=== PATIENT | male | born 1995 | race African-American/Black ===

== ENCOUNTER 2016-09-19 13:41 | Emergency (ER) | payer OTHER ==
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
[2016-09-19] MEDS ORDERED: METHOCARBAMOL 500 MG TABLET PO STA (15:16)
[2016-09-19] MEDS ORDERED: ACETAMINOPHEN 325 MG TABLET PO STA (15:16)
[2016-09-19] MEDS ORDERED: IBUPROFEN 600 MG TABLET PO STA (15:16)
[2016-09-19] MEDS ORDERED: ACETAMINOPHEN 325 MG TABLET PO ONE (15:24)
[2016-09-19] MEDS ORDERED: IBUPROFEN 600 MG TABLET PO ONE (15:25)
[2016-09-19] MEDS ORDERED: METHOCARBAMOL 500 MG TABLET PO ONE (15:25)
[2016-09-19 16:35] VITALS: BP 126/69
--- NOTE | 2016-09-19 16:50 | XRAY Preliminary Report ---
Exam: XR Cervical Spine 2 View IMPRESSION: 1. Recommend direct inspection posterior nasopharynx to differentiate adenoidal hyperplasia from othe r mass lesion. 2. Normal cervical spine. [facility] SITE ID: [id number]
--- NOTE | 2016-09-19 16:54 | XRAY Preliminary Report ---
Exam: XR Thoracic Spine 2 View IMPRESSION: 1. No acute bony abnormality. 2. 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 3. Rudimentary ribs L1. [facility] SITE ID: [id number]
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
== END 2016-09-19 16:35 | disposition home or self-care (01) ==
LOC: ED 13:41
DX: S16.1XXA Strain of muscle, fascia and tendon at neck level, initial encounter (principal); S29.012A Strain of muscle and tendon of back wall of thorax, initial encounter; V43.52XA Car driver injured in collision with other type car in traffic accident, initial encounter
CPT/HCPCS: 72040; 72070; 99283; A9270